=== PATIENT | female | born 1955 | race Caucasian/White ===

== ENCOUNTER 2020-09-28 08:34 | Outpatient (CLI) | payer MEDICARE, BC | END 2020-09-28 08:35 | disposition home or self-care (01) | LOC: CSHMRI 08:34 | PROVIDERS: ATTEND Orthopaedic Surgery | DX: M25.511 Pain in right shoulder (principal); M43.02 Spondylolysis, cervical region; M19.011 Primary osteoarthritis, right shoulder; R93.6 Abnormal findings on diagnostic imaging of limbs; M47.812 Spondylosis without myelopathy or radiculopathy, cervical region; M47.22 Other spondylosis with radiculopathy, cervical region; M50.223 Other cervical disc displacement at C6-C7 level | CPT/HCPCS: 72141 ==

== ENCOUNTER 2020-11-27 21:34 | Emergency (ER) | payer MEDICARE, BC ==
[2020-11-27] MEDS ORDERED: Morphine 4 MG/ML VIAL ONE (23:43)
[2020-11-27] MEDS ORDERED: Ondansetron ODT 4 MG TAB ONE ×2 (23:43→23:44)
[2020-11-27] MEDS ORDERED: Dexamethasone 10 MG/ML VIAL ONE (23:43)
[2020-11-27] MEDS ORDERED: Ketorolac Tromethamine 15 MG/ML VIAL ONE (23:44)
[2020-11-27] MEDS ORDERED: Morphine 2 MG/ML VIAL ONE (23:44)
== END 2020-11-28 00:20 | disposition home or self-care (01) ==
LOC: CSHERS 21:34
DX: M54.12 Radiculopathy, cervical region (principal)
CPT/HCPCS: 96372; 99283; J2270; J1100; J1885; Q0162

== ENCOUNTER 2020-11-28 20:47 | Emergency (ER) | payer MEDICARE, BC ==
[2020-11-28] MEDS ORDERED: Morphine 4 MG/ML VIAL ONE ×3 (21:27→21:31)
[2020-11-28] MEDS ORDERED: Morphine 2 MG/ML VIAL ONE (21:31)
[2020-11-28] MEDS ORDERED: Ketorolac Tromethamine 15 MG/ML VIAL ONE (21:32)
[2020-11-28 22:46] LABS: #Monocytes 0.7 10x3/uL (0.0-1.1); #Neutrophils 10.4 10x3/uL (1.5-8.4); %Basophils 0.2 % (0.0-2.0); %Eosinophils 0.1 % (0.0-6.0); %Monocytes 5.8 % (0.0-10.0); %Neutrophils 82.5 % (40.0-75.0); Hemoglobin 13.1 g/dL (12.0-15.5); Mean Corpuscular HGB CONC 34.7 g/dL (32.0-36.0); Mean Corpuscular Volume 89.4 fl (81.6-98.3); Mean Platelet Volume 10.5 fl (7.4-10.4); Platelet Count 294 10x3/uL (150-450); RBC Distribution Width 11.9 % (11.5-14.5); Red Blood Cell (RBC) Count 4.23 10x6/uL (3.90-5.03); White Blood Cell (WBC) Count 12.6 10x3/uL (3.5-10.5)
[2020-11-28] MEDS ORDERED: Diazepam 5 MG TAB ONE (22:56)
[2020-11-28] MEDS ORDERED: Diazepam 10 MG/2 ML SYRINGE ONE (23:01)
[2020-11-28 23:03] LABS: ALT (SGPT) 30 U/L (8-55); AST (SGOT) 19 U/L (5-34); Albumin 4.3 g/dL (3.4-4.8); Alkaline Phosphatase 66 U/L (40-110); Anion Gap 14 mmol/L (10-20); BUN (Urea Nitrogen) 13 mg/dL (9.8-20.1); Bilirubin, Total 0.4 mg/dL (0.2-1.2); Calc. Creatinine Clearance 0 mL/min (70-130); Carbon Dioxide 25 mmol/L (23-31); Chloride 96 mmol/L (98-107); Globulin 2.6 g/dL (2.4-3.5); Glucose 133 mg/dL (80-115); Lipase 11 U/L (8-78); Potassium 4.1 mmol/L (3.5-5.1); Protein, Total 6.9 g/dL (5.8-8.1); Sodium 131 mmol/L (136-145)
== END 2020-11-29 02:00 | disposition home or self-care (01) ==
LOC: CSHERS 20:47
DX: M54.12 Radiculopathy, cervical region (principal)
CPT/HCPCS: 80053; 83690; 84484; 85025; 85652; 93005; 96372; 99284; J2270; J1885; J3360

== ENCOUNTER 2021-05-29 12:55 | Outpatient (CLI) | payer MEDICARE, BC | END 2021-05-29 12:56 | disposition home or self-care (01) | LOC: CSHMAMMO 12:55 | PROVIDERS: ATTEND Family Medicine | DX: Z12.31 Encounter for screening mammogram for malignant neoplasm of breast (principal) | CPT/HCPCS: 77063; 77067 ==